=== PATIENT | female | born 1990 | race Caucasian/White ===

== ENCOUNTER 2019-03-08 16:24 | Inpatient (IN) | payer OTHER ==
[~2019-03-08] VITALS: Ht 170.2 cm; Wt 106.4 kg
--- NOTE | 2019-03-08 16:42 | NUR ---
PT IN RESTROOM
[2019-03-08] MEDS ORDERED: ONDANSETRON 2MG/ML, 2ML IVPush ONE (17:00)
[2019-03-08] MEDS ORDERED: LORazepam 2 MG/ML, 1ML IVPush ONE (17:00)
[2019-03-08] MEDS ORDERED: SODIUM CHLORIDE FLUSH 10ML SYR IVF ONE (17:00)
[2019-03-08] MEDS ORDERED: SODIUM CHLORIDE 0.9% 1,000ML IVBOLUS ONE (17:00)
[2019-03-08] MEDS ORDERED: LORazepam 2 MG/ML, 1ML ONE (17:03)
[2019-03-08] MEDS ORDERED: ONDANSETRON 2MG/ML, 2ML ONE (17:03)
--- NOTE | 2019-03-08 17:18 | NUR ---
PIV started, pt medicated per MAR. Pt's at bedside. Pt placed on monitors. VSS
[2019-03-08 17:29] LABS: ALANINE AMINOTRANSFERASE 75 U/L (12-78); ALBUMIN 4.3 g/dL (3.4-5.0); ANION GAP 16 mmol/L (5-15); CALCIUM 8.6 mg/dL (8.5-10.1); CHLORIDE 102 mmol/L (98-107); CREATININE 0.87 mg/dL (0.55-1.02)
[2019-03-08] MEDS ORDERED: LABE100T6 PO (17:30)
[2019-03-08] MEDS ORDERED: METO50TA82 PO (17:30)
[2019-03-08] MEDS ORDERED: SERT50TA PO (17:30)
[2019-03-08 17:34] LABS: ALKALINE PHOSPHATASE 111 U/L (45-117); BILIRUBIN,TOTAL 1.3 mg/dL (0.2-1.0); TOTAL PROTEIN 8.3 g/dL (6.4-8.2)
[2019-03-08 17:54] LABS: MEAN CORPUSCULAR HEMOGLOBIN 33.9 pg (27.0-34.8); MEAN CORPUSCULAR HGB CONC 33.9 g/dL (32.4-35.8); MEAN CORPUSCULAR VOLUME 100.1 fL (80-100); MEAN PLATELET VOLUME 7.8 fL (7.4-10.4); PLATELET COUNT 312 x10^3/uL (130-400); RED BLOOD COUNT 4.92 x10^6/uL (3.82-5.3)
[2019-03-08 17:57] LABS: BASOPHILS # (AUTO) 0.08 x10^3/uL (0-0.1); BASOPHILS % (AUTO) 1 % (0-1); EOSINOPHILS # (AUTO) 0.01 x10^3/uL (0-0.4); EOSINOPHILS % (AUTO) 0 % (1-7); LYMPHOCYTES # (AUTO) 2.14 x10^3/uL (1-3.4); LYMPHOCYTES % (AUTO) 28 % (22-44); MONOCYTES # (AUTO) 0.55 x10^3/uL (0.2-0.8); MONOCYTES % (AUTO) 7 % (2-9); NEUTROPHILS # (AUTO) 4.92 x10^3/uL (1.8-6.8); NEUTROPHILS % (AUTO) 64 % (42-75)
[2019-03-08 17:58] LABS: MD SCAN
[2019-03-08 18:03] LABS: RED CELL DISTRIBUTION WIDTH 16.5 % (9.6-15.2)
[2019-03-08] MEDS ORDERED: NS + 40MEQ KCL 1,000 ML IV ONE (18:11)
--- NOTE | 2019-03-08 18:26 | NUR ---
IVF with potassium started, pt remains on all monitors.
[2019-03-08] MEDS ORDERED: POTASSIUM CHLORIDE 40 MEQ in SODIUM CHLORIDE 0.9% 1,000 ML IV SCH (18:30)
[2019-03-08] MEDS ORDERED: SODIUM CHLORIDE FLUSH 10ML SYR IVF PRN (19:00)
--- NOTE | 2019-03-08 19:00 | NUR ---
Dr. Ma at bedside to evaluate pt for admission.
--- NOTE | 2019-03-08 19:18 | NUR ---
Telephone SBAR given to RNBethany. Pt made aware of new room assignment.
[2019-03-08] MEDS ORDERED: LABETALOL 5MG/ML, 20ML IVPush PRN (19:30)
[2019-03-08] MEDS ORDERED: LORazepam 1MG TABLET PO PRN ×4 (19:30)
[2019-03-08] MEDS ORDERED: hydrALAzine 20 MG/ML, 1ML IVPush PRN (19:30)
[2019-03-08] MEDS ORDERED: ONDANSETRON 2MG/ML, 2ML IVPush PRN (19:30)
[2019-03-08] MEDS ORDERED: FOLIC ACID 5 MG/ML IM ONE (19:30)
[2019-03-08] MEDS ORDERED: LORazepam 0.5MG TABLET PO PRN (19:30)
[2019-03-08] MEDS ORDERED: THIAMINE 200 MG in DEXTROSE 5% 50 ML IVPB ONE (19:30)
[2019-03-08] MEDS ORDERED: ACETAMINOPHEN 325 MG TABLET PO PRN (19:30)
[2019-03-08] MEDS ORDERED: LORazepam 2 MG/ML, 1ML IV PRN ×5 (19:30)
[2019-03-08 19:48] VITALS: BP 152/99
[2019-03-08] MEDS: ENOXAPARIN 40 MG/0.4 ML SQ SCH (20:38)
[2019-03-08] MEDS ORDERED: FOLIC ACID 1 MG TABLET PO ONE (21:00)
[2019-03-08 22:32] LABS: AMPHETAMINE SCREEN, URINE Negative (Negative); BARBITURATE SCREEN, URINE Negative (Negative); BENZODIAZEPINE SCREEN, URINE Negative (Negative); CANNABINOID SCREEN, URINE Negative (Negative); COCAINE SCREEN, URINE Negative (Negative); METHADONE SCREEN, URINE Negative (Negative); OPIATE SCREEN, URINE Negative (Negative)
[2019-03-08] MEDS: NS + 20MEQ KCL 1,000 ML IV SCH (23:55)
[2019-03-09] MEDS ORDERED: MAGNESIUM SULFATE PMX 2GM/50ML 50 ML IV ONE
[2019-03-09 01:44] LABS: OCCULT BLOOD NEGATIVE (NEGATIVE)
[2019-03-09 02:14] LABS: CLOSTRIDIUM DIFFICILE ANTIGEN NEGATIVE; CLOSTRIDIUM DIFFICILE TOXIN NEGATIVE (Negative)
[2019-03-09 02:51] VITALS: BP 164/102
[2019-03-09 03:29] VITALS: BP 146/89
[2019-03-09 05:43] LABS: ALBUMIN 3.7 g/dL (3.4-5.0); ANION GAP 9 mmol/L (5-15); CHLORIDE 106 mmol/L (98-107)
[2019-03-09 05:45] LABS: BASOPHILS # (AUTO) 0.05 x10^3/uL (0-0.1); BASOPHILS % (AUTO) 1 % (0-1); EOSINOPHILS # (AUTO) 0.02 x10^3/uL (0-0.4); EOSINOPHILS % (AUTO) 0 % (1-7); LYMPHOCYTES # (AUTO) 2.07 x10^3/uL (1-3.4); LYMPHOCYTES % (AUTO) 27 % (22-44); MD NO; MEAN CORPUSCULAR HEMOGLOBIN 33.9 pg (27.0-34.8); MEAN CORPUSCULAR HGB CONC 33.5 g/dL (32.4-35.8); MEAN CORPUSCULAR VOLUME 101.1 fL (80-100); MEAN PLATELET VOLUME 7.9 fL (7.4-10.4); MONOCYTES # (AUTO) 0.56 x10^3/uL (0.2-0.8); MONOCYTES % (AUTO) 7 % (2-9); NEUTROPHILS # (AUTO) 4.89 x10^3/uL (1.8-6.8); NEUTROPHILS % (AUTO) 65 % (42-75); PLATELET COUNT 257 x10^3/uL (130-400); RED BLOOD COUNT 4.28 x10^6/uL (3.82-5.3); RED CELL DISTRIBUTION WIDTH 17.5 % (9.6-15.2)
[2019-03-09 05:48] LABS: ALANINE AMINOTRANSFERASE 62 U/L (12-78); ALKALINE PHOSPHATASE 91 U/L (45-117); BILIRUBIN,TOTAL 1.8 mg/dL (0.2-1.0); CALCIUM 8.4 mg/dL (8.5-10.1); CREATININE 0.75 mg/dL (0.55-1.02); TOTAL PROTEIN 6.9 g/dL (6.4-8.2)
[2019-03-09] MEDS: OMEPRAZOLE 20 MG CAPSULE.DR PO SCH (06:18)
[2019-03-09 08:00] VITALS: BP 160/109
[2019-03-09] MEDS: MULTIVITAMINS/MINERALS TABLET PO SCH (09:09)
[2019-03-09] MEDS: LABETALOL 100 MG TABLET PO SCH (09:09)
[2019-03-09] MEDS: SERTRALINE 50MG TABLET PO SCH (09:10)
[2019-03-09] MEDS ORDERED: CHLORDIAZEPOXIDE 10 MG CAPSULE PO ONE (10:00)
[2019-03-09] MEDS: NS + 20MEQ KCL 1,000 ML IV SCH ×2 (10:56→16:29)
[2019-03-09] MEDS: GABAPENTIN 100 MG CAPSULE PO SCH ×3 (10:59→21:11)
[2019-03-09 13:55] VITALS: BP 112/71
[2019-03-09 21:10] VITALS: BP 150/93
[2019-03-09] MEDS: ENOXAPARIN 40 MG/0.4 ML SQ SCH (21:11)
[2019-03-10] MEDS: NS + 20MEQ KCL 1,000 ML IV SCH ×2 (00:17→08:37)
[2019-03-10 01:02] VITALS: BP 143/98
[2019-03-10] MEDS: OMEPRAZOLE 20 MG CAPSULE.DR PO SCH (05:26)
[2019-03-10 06:23] LABS: BASOPHILS # (AUTO) 0.03 x10^3/uL (0-0.1); BASOPHILS % (AUTO) 1 % (0-1); EOSINOPHILS # (AUTO) 0.09 x10^3/uL (0-0.4); EOSINOPHILS % (AUTO) 2 % (1-7); LYMPHOCYTES # (AUTO) 1.83 x10^3/uL (1-3.4); LYMPHOCYTES % (AUTO) 36 % (22-44); MD NO; MEAN CORPUSCULAR HGB CONC 33.6 g/dL (32.4-35.8); MEAN CORPUSCULAR VOLUME 101.1 fL (80-100); MONOCYTES # (AUTO) 0.32 x10^3/uL (0.2-0.8); MONOCYTES % (AUTO) 6 % (2-9); NEUTROPHILS # (AUTO) 2.79 x10^3/uL (1.8-6.8); NEUTROPHILS % (AUTO) 55 % (42-75); PLATELET COUNT 188 x10^3/uL (130-400); RED CELL DISTRIBUTION WIDTH 17.1 % (9.6-15.2)
[2019-03-10 06:31] LABS: ALANINE AMINOTRANSFERASE 49 U/L (12-78); ALBUMIN 3.1 g/dL (3.4-5.0); ANION GAP 7 mmol/L (5-15); CALCIUM 7.8 mg/dL (8.5-10.1); CHLORIDE 112 mmol/L (98-107)
[2019-03-10 06:41] LABS: ALKALINE PHOSPHATASE 79 U/L (45-117); BILIRUBIN,TOTAL 1.2 mg/dL (0.2-1.0); TOTAL PROTEIN 6.2 g/dL (6.4-8.2)
[2019-03-10 07:45] VITALS: BP 140/91
[2019-03-10] MEDS: GABAPENTIN 100 MG CAPSULE PO SCH (08:37)
[2019-03-10] MEDS: MULTIVITAMINS/MINERALS TABLET PO SCH (08:37)
[2019-03-10] MEDS: LABETALOL 100 MG TABLET PO SCH (08:38)
[2019-03-10] MEDS: SERTRALINE 50MG TABLET PO SCH (08:40)
[2019-03-10] MEDS ORDERED: THIAMINE 100 MG in DEXTROSE 5% 50 ML IVPB SCH (09:00)
[2019-03-10] MEDS ORDERED: THIAMINE 100MG TABLET PO SCH (09:00)
[2019-03-10] MEDS ORDERED: SERT50TA PO (09:33)
== END 2019-03-10 10:44 | disposition home or self-care (01) | DRG 392 ==
LOC: ED 17:20 → EDIP 18:46 → 4EST 19:38 → DCLOUNGE 03-10 10:38
PROVIDERS: ADMIT Family Medicine; ATTEND Family Medicine
DX: K52.89 Other specified noninfective gastroenteritis and colitis (principal); F10.239 Alcohol dependence with withdrawal, unspecified; D75.89 Other specified diseases of blood and blood-forming organs; E86.0 Dehydration; E87.6 Hypokalemia; I10 Essential (primary) hypertension; K29.70 Gastritis, unspecified, without bleeding; Z79.899 Other long term (current) drug therapy; Z80.7 Family history of other malignant neoplasms of lymphoid, hematopoietic and related tissues; Z81.1 Family history of alcohol abuse and dependence
CPT/HCPCS: 36415; 80053; 80307; 82272; 82607; 83735; 84100; 84443; 84703; 85025; 87324; 93005; 96374; 96375; G0378; J1650; J2405; J3411; J3480; J2060; J3475; J7030

== ENCOUNTER 2019-04-02 21:04 | Emergency (ER) | payer OTHER ==
[~2019-04-02] VITALS: Ht 170.2 cm; Wt 100.0 kg
[~2019-04-02 21:04] MED LIST: LABE100T6 PO; METO50TA82 PO; SERT50TA PO
--- NOTE | 2019-04-02 21:16 | NUR ---
PT PLACED ON BP CUFF, PULSE OX. URINE COLLECTED/SENT TO LAB. DR CHOI IN TO SEE PT.
[2019-04-02] MEDS ORDERED: ONDANSETRON 2MG/ML, 2ML ONE (21:28)
[2019-04-02] MEDS ORDERED: MAALOX/HYOSCYAMINE/LIDOCAINE 45 ML BTL ONE (21:28)
[2019-04-02] MEDS ORDERED: ONDANSETRON 2MG/ML, 2ML IVPush ONE (21:30)
[2019-04-02] MEDS ORDERED: MAALOX/HYOSCYAMINE/LIDOCAINE 45 ML BTL PO ONE (21:30)
--- NOTE | 2019-04-02 21:33 | NUR ---
PT MEDICATED PER ERP ORDER FOR ABD PAIN RATED 3/10 AND NAUSEA. LAB IN TO DRAW. PT UPDATED ON POC, CALL LIGHT WITHIN REACH.
[2019-04-02 21:55] LABS: INTERNATIONAL NORMALIZED RATIO 1.04 (0.93-1.1); PROTHROMBIN TIME 10.9 Seconds (9.6-11.5)
[2019-04-02 21:57] LABS: BASOPHILS # (AUTO) 0.08 x10^3/uL (0-0.1); BASOPHILS % (AUTO) 1 % (0-1); EOSINOPHILS # (AUTO) 0.01 x10^3/uL (0-0.4); EOSINOPHILS % (AUTO) 0 % (1-7); LYMPHOCYTES # (AUTO) 1.85 x10^3/uL (1-3.4); LYMPHOCYTES % (AUTO) 12 % (22-44); MD NO; MEAN CORPUSCULAR HEMOGLOBIN 34.1 pg (27.0-34.8); MEAN CORPUSCULAR HGB CONC 33.4 g/dL (32.4-35.8); MEAN CORPUSCULAR VOLUME 102.1 fL (80-100); MEAN PLATELET VOLUME 8.8 fL (7.4-10.4); MONOCYTES # (AUTO) 0.93 x10^3/uL (0.2-0.8); MONOCYTES % (AUTO) 6 % (2-9); NEUTROPHILS # (AUTO) 12.52 x10^3/uL (1.8-6.8); NEUTROPHILS % (AUTO) 81 % (42-75); PLATELET COUNT 344 x10^3/uL (130-400); RED BLOOD COUNT 4.89 x10^6/uL (3.82-5.3); RED CELL DISTRIBUTION WIDTH 16.9 % (9.6-15.2)
[2019-04-02 21:58] LABS: ALBUMIN 4.1 g/dL (3.4-5.0); ANION GAP 10 mmol/L (5-15); CALCIUM 8.8 mg/dL (8.5-10.1); CHLORIDE 100 mmol/L (98-107)
[2019-04-02 22:04] LABS: ALANINE AMINOTRANSFERASE 78 U/L (12-78); ALKALINE PHOSPHATASE 106 U/L (45-117); BILIRUBIN,TOTAL 1.8 mg/dL (0.2-1.0); CREATININE 0.82 mg/dL (0.55-1.02); TOTAL PROTEIN 7.9 g/dL (6.4-8.2)
[2019-04-02 22:28] LABS: CULTURE INDICATED? YES; MICROSCOPIC INDICATED
[2019-04-02] MEDS ORDERED: LORazepam 2 MG/ML, 1ML IVPush ONE (22:30)
--- NOTE | 2019-04-02 22:45 | NUR ---
ALL RESULTS BACK, PT FOR RECHECK.
[2019-04-02] MEDS ORDERED: LORazepam 2 MG/ML, 1ML ONE (22:46)
[2019-04-02 22:51] VITALS: BP 130/87
[2019-04-02] MEDS ORDERED: POTASSIUM CHLORIDE 20 MEQ TAB.ER.PRT ONE (22:55)
--- NOTE | 2019-04-02 22:58 | NUR ---
ATIVAN AND POTASSIUM GIVEN PER ERP ORDER. VSS/UPDATED IN COMPUTER. AWAITING DISCHARGE PAPERWORK.
[2019-04-02] MEDS ORDERED: POTASSIUM CHLORIDE 20 MEQ TAB.ER.PRT PO ONE (23:00)
== END 2019-04-02 23:20 | disposition home or self-care (01) ==
LOC: ED 21:14
DX: K29.21 Alcoholic gastritis with bleeding (principal); F10.239 Alcohol dependence with withdrawal, unspecified; F10.229 Alcohol dependence with intoxication, unspecified; N30.01 Acute cystitis with hematuria; E87.6 Hypokalemia; I10 Essential (primary) hypertension; Z72.9 Problem related to lifestyle, unspecified
CPT/HCPCS: 36415; 80053; 80307; 81001; 83690; 84703; 85025; 85610; 87086; 96374; 96375; 99283; J2060; J2405

== ENCOUNTER 2019-04-24 07:23 | Emergency (ER) | payer MEDICAID ==
[~2019-04-24] VITALS: Ht 170.2 cm; Wt 102.0 kg
[2019-04-24] MEDS ORDERED: ONDANSETRON ODT 4 MG ONE (07:44)
[2019-04-24] MEDS ORDERED: KETOROLAC 30 MG/1 ML ONE (07:53)
[2019-04-24] MEDS ORDERED: SODIUM CHLORIDE 0.9% 1,000ML IVBOLUS ONE (08:00)
[2019-04-24] MEDS ORDERED: KETOROLAC 30 MG/1 ML IVPush ONE (08:00)
[2019-04-24] MEDS ORDERED: ONDANSETRON ODT 4 MG PO ONE (08:00)
[2019-04-24] MEDS ORDERED: SODIUM CHLORIDE FLUSH 10ML SYR IVF ONE (08:00)
--- NOTE | 2019-04-24 08:00 | NUR ---
pt upright on gurney awake & more comfortable, responds approp to staff, NAD, comfort measures provided, call light within reach.
[2019-04-24 08:09] LABS: BASOPHILS # (AUTO) 0.03 x10^3/uL (0-0.1); BASOPHILS % (AUTO) 1 % (0-1); EOSINOPHILS # (AUTO) 0.05 x10^3/uL (0-0.4); EOSINOPHILS % (AUTO) 1 % (1-7); LYMPHOCYTES # (AUTO) 0.99 x10^3/uL (1-3.4); LYMPHOCYTES % (AUTO) 22 % (22-44); MD NO; MEAN CORPUSCULAR HEMOGLOBIN 34.1 pg (27.0-34.8); MEAN CORPUSCULAR HGB CONC 33.3 g/dL (32.4-35.8); MEAN CORPUSCULAR VOLUME 102.4 fL (80-100); MEAN PLATELET VOLUME 8.2 fL (7.4-10.4); MONOCYTES # (AUTO) 0.35 x10^3/uL (0.2-0.8); MONOCYTES % (AUTO) 8 % (2-9); NEUTROPHILS # (AUTO) 3.07 x10^3/uL (1.8-6.8); NEUTROPHILS % (AUTO) 68 % (42-75); PLATELET COUNT 233 x10^3/uL (130-400); RED BLOOD COUNT 4.86 x10^6/uL (3.82-5.3); RED CELL DISTRIBUTION WIDTH 15.9 % (9.6-15.2)
[2019-04-24 08:13] LABS: HCG UR SG 1.029 (1.003-1.030)
[2019-04-24 08:14] LABS: CULTURE INDICATED? YES; MICROSCOPIC INDICATED
[2019-04-24 08:22] LABS: ALBUMIN 4.5 g/dL (3.4-5.0); ANION GAP 16 mmol/L (5-15); CALCIUM 8.9 mg/dL (8.5-10.1); CHLORIDE 104 mmol/L (98-107)
[2019-04-24 08:24] LABS: ALANINE AMINOTRANSFERASE 139 U/L (12-78); ALKALINE PHOSPHATASE 106 U/L (45-117); BILIRUBIN,TOTAL 1.3 mg/dL (0.2-1.0); CREATININE 0.82 mg/dL (0.55-1.02); TOTAL PROTEIN 8.3 g/dL (6.4-8.2)
[2019-04-24 08:55] VITALS: BP 132/89
--- NOTE | 2019-04-24 08:55 | NUR ---
pt remains upright on gurney awake & comfortable, responds approp to staff, NAD, comfort measures provided, call light within reach.
[2019-04-24] MEDS ORDERED: POTASSIUM CHLORIDE 20 MEQ TAB.ER.PRT PO ONE (09:00)
[2019-04-24] MEDS ORDERED: POTASSIUM CHLORIDE 20 MEQ TAB.ER.PRT ONE (09:13)
--- NOTE | 2019-04-24 09:18 | NUR ---
Patient given discharge instructions and Rx, they have confirmed that they understand the instructions. Patient ambulatory with steady gait.
== END 2019-04-24 09:25 | disposition home or self-care (01) ==
LOC: ED 08:50
DX: N30.00 Acute cystitis without hematuria (principal); R74.8 Abnormal levels of other serum enzymes; I10 Essential (primary) hypertension; Z72.9 Problem related to lifestyle, unspecified; R11.10 Vomiting, unspecified
CPT/HCPCS: 36415; 80053; 81001; 81025; 85025; 87086; 93005; 96361; 96374; 99284; J1885; J7030; Q0162

== ENCOUNTER 2019-08-11 23:41 | Emergency (ER) | payer MEDICAID ==
[~2019-08-11] VITALS: Ht 170.2 cm; Wt 122.0 kg
[2019-08-12] MEDS ORDERED: ONDANSETRON 2MG/ML, 2ML IVPush ONE
[2019-08-12] MEDS ORDERED: SODIUM CHLORIDE 0.9% 1,000ML IVBOLUS ONE
[2019-08-12 00:15] LABS: BASOPHILS # (AUTO) 0.05 x10^3/uL (0-0.1); BASOPHILS % (AUTO) 0 % (0-1); EOSINOPHILS # (AUTO) 0.01 x10^3/uL (0-0.4); EOSINOPHILS % (AUTO) 0 % (1-7); LYMPHOCYTES # (AUTO) 1.37 x10^3/uL (1-3.4); LYMPHOCYTES % (AUTO) 10 % (22-44); MD NO; MEAN CORPUSCULAR HEMOGLOBIN 36.2 pg (27.0-34.8); MEAN CORPUSCULAR HGB CONC 34.1 g/dL (32.4-35.8); MEAN CORPUSCULAR VOLUME 106.1 fL (80-100); MEAN PLATELET VOLUME 8.2 fL (7.4-10.4); MONOCYTES # (AUTO) 0.66 x10^3/uL (0.2-0.8); MONOCYTES % (AUTO) 5 % (2-9); NEUTROPHILS # (AUTO) 11.36 x10^3/uL (1.8-6.8); NEUTROPHILS % (AUTO) 84 % (42-75); PLATELET COUNT 311 x10^3/uL (130-400); RED BLOOD COUNT 4.68 x10^6/uL (3.82-5.3); RED CELL DISTRIBUTION WIDTH 13.6 % (9.6-15.2)
[2019-08-12] MEDS ORDERED: LORazepam 2 MG/ML, 1ML ONE ×3 (00:24→02:28)
[2019-08-12] MEDS ORDERED: ONDANSETRON 2MG/ML, 2ML ONE (00:24)
[2019-08-12 00:26] LABS: CALCIUM 8.7 mg/dL (8.5-10.1)
[2019-08-12 00:31] LABS: ALANINE AMINOTRANSFERASE 108 U/L (12-78); ALKALINE PHOSPHATASE 113 U/L (45-117); CREATININE 0.95 mg/dL (0.55-1.02); TOTAL PROTEIN 7.8 g/dL (6.4-8.2)
--- NOTE | 2019-08-12 00:39 | NUR ---
PT PROVIDED URINE SAMPLE AT THIS TIME, AMBULATED WITH STEADY GAIT TO BR. IVF INITIATED. PT RESTING IN BED, ALL MONITORS IN PLACED. MEDICATED PER DEC.
[2019-08-12 01:06] LABS: ANION GAP 8 mmol/L (5-15); CHLORIDE 105 mmol/L (98-107)
[2019-08-12] MEDS ORDERED: LORazepam 2 MG/ML, 1ML IVPush ONE ×2 (02:00)
--- NOTE | 2019-08-12 02:30 | NUR ---
DR. KURTZ HAD PROVIDED PT. WITH PO FLUIDS A BIT AGO. PT. IS TOLERATING PO FLUIDS WELL. PT. MEDICATED PER DEC. PT. DENIES ANY PAIN OR DISCOMFORT AT THIS TIME. DENIES NEEDS. ALL MONITORS REMAIN IN PLACE. ALL SAFETY MEASURES OBSERVED.
[2019-08-12 03:26] VITALS: BP 129/78
--- NOTE | 2019-08-12 03:27 | NUR ---
PT. CONTINUES TO TOLERATE PO INTAKE. PT. REPORTS FEELING MUCH BETTER AT THIS TIME. VS UPDATED. DR. KURTZ NOTIFIED. PT. TO BE D/C.
== END 2019-08-12 03:53 | disposition home or self-care (01) ==
LOC: ED 08-12 01:01
DX: F41.1 Generalized anxiety disorder (principal); R11.2 Nausea with vomiting, unspecified; R42 Dizziness and giddiness; I10 Essential (primary) hypertension; Z87.891 Personal history of nicotine dependence
CPT/HCPCS: 36415; 71045; 80053; 83690; 84703; 85025; 93005; 96374; 96375; 96376; 99284; J2060; J2405; J7030

== ENCOUNTER 2020-01-07 23:25 | Emergency (ER) | payer MEDICAID ==
[~2020-01-07] VITALS: Ht 170.2 cm; Wt 100.0 kg
[2020-01-08] MEDS ORDERED: THIAMINE 100 MG/ML, 2ML IM ONE
[2020-01-08] MEDS ORDERED: LORazepam 2 MG/ML, 1ML IVPush ONE
[2020-01-08 00:02] LABS: BASOPHILS # (AUTO) 0.03 x10^3/uL (0-0.1); BASOPHILS % (AUTO) 0 % (0-1); EOSINOPHILS % (AUTO) 1 % (1-7); LYMPHOCYTES # (AUTO) 2.05 x10^3/uL (1-3.4); LYMPHOCYTES % (AUTO) 21 % (22-44); MD NO; MEAN CORPUSCULAR HGB CONC 33.8 g/dL (32.4-35.8); MEAN CORPUSCULAR VOLUME 109.4 fL (80-100); MEAN PLATELET VOLUME 8.4 fL (7.4-10.4); MONOCYTES # (AUTO) 0.59 x10^3/uL (0.2-0.8); MONOCYTES % (AUTO) 6 % (2-9); NEUTROPHILS # (AUTO) 7.16 x10^3/uL (1.8-6.8); NEUTROPHILS % (AUTO) 72 % (42-75); PLATELET COUNT 261 x10^3/uL (130-400); RED CELL DISTRIBUTION WIDTH 13.6 % (9.6-15.2)
[2020-01-08 00:06] LABS: ALANINE AMINOTRANSFERASE 152 U/L (12-78); ALBUMIN 3.7 g/dL (3.4-5.0); ANION GAP 8 mmol/L (5-15); CALCIUM 8.8 mg/dL (8.5-10.1); CHLORIDE 105 mmol/L (98-107); CREATININE 0.68 mg/dL (0.55-1.02)
[2020-01-08 00:11] LABS: ALKALINE PHOSPHATASE 106 U/L (45-117); BILIRUBIN,TOTAL 2.6 mg/dL (0.2-1.0); TOTAL PROTEIN 7.3 g/dL (6.4-8.2); TROPONIN I < 0.015 ng/mL (0.000-0.045)
[2020-01-08] MEDS ORDERED: LORazepam 2 MG/ML, 1ML ONE (00:11)
[2020-01-08] MEDS ORDERED: THIAMINE 100 MG/ML, 2ML ONE (00:12)
[2020-01-08 00:20] VITALS: BP 149/68
--- NOTE | 2020-01-08 00:22 | NUR ---
Patient BIB [facility] c/o N/V and anxiety since last night in the middle of the night; woke her from sleep. Per EMS, patient was having a lot of anxiety and they were able to track coach her. IV established by EMS. 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 Patient states she has a hx of anxiety but does not take meds for it.
--- NOTE | 2020-01-08 01:04 | NUR ---
Report given to BART Gregorio.
--- NOTE | 2020-01-08 01:07 | NUR ---
REPORT RECEIVED FROM BART GASCA. PLAN OF CARE DISCUSSED
--- NOTE | 2020-01-08 01:17 | NUR ---
Patient/Caregiver given discharge instructions and they have confirmed that they understand the instructions. Patient ambulatory with steady gait.
== END 2020-01-08 01:20 ==
LOC: ED 01-08 00:41
DX: F41.1 Generalized anxiety disorder (principal); F10.10 Alcohol abuse, uncomplicated; Y90.0 Blood alcohol level of less than 20 mg/100 ml
CPT/HCPCS: 36415; 71045; 80053; 80307; 84443; 84484; 84703; 85025; 93005; 96372; 96374; 99285; J2060; J3411

== ENCOUNTER 2020-05-23 23:30 | Emergency (ER) | payer MEDICAID ==
[~2020-05-23] VITALS: Ht 170.2 cm; Wt 105.9 kg
[2020-05-24 00:19] LABS: MEAN CORPUSCULAR HEMOGLOBIN 38.2 pg (27.0-34.8); MEAN CORPUSCULAR VOLUME 112.5 fL (80-100); MEAN PLATELET VOLUME 7.7 fL (7.4-10.4); PLATELET COUNT 330 x10^3/uL (130-400); RED BLOOD COUNT 4.13 x10^6/uL (3.82-5.3); RED CELL DISTRIBUTION WIDTH 15.9 % (9.6-15.2)
[2020-05-24 00:29] LABS: ALANINE AMINOTRANSFERASE 141 U/L (12-78); ALBUMIN 3.5 g/dL (3.4-5.0); ANION GAP 11 mmol/L (5-15); CALCIUM 8.7 mg/dL (8.5-10.1); CHLORIDE 106 mmol/L (98-107); CREATININE 0.62 mg/dL (0.55-1.02)
[2020-05-24 00:33] LABS: ALKALINE PHOSPHATASE 121 U/L (45-117); BILIRUBIN,TOTAL 1.5 mg/dL (0.2-1.0); TOTAL PROTEIN 7.2 g/dL (6.4-8.2)
[2020-05-24 00:55] LABS: MICROSCOPIC AUTO
[2020-05-24 00:56] LABS: BASOPHILS # (AUTO) 0.04 x10^3/uL (0-0.1); BASOPHILS % (AUTO) 1 % (0-1); EOSINOPHILS % (AUTO) 1 % (1-7); LYMPHOCYTES # (AUTO) 2.49 x10^3/uL (1-3.4); LYMPHOCYTES % (AUTO) 26 % (22-44); MD SCAN; MONOCYTES # (AUTO) 0.52 x10^3/uL (0.2-0.8); MONOCYTES % (AUTO) 6 % (2-9); NEUTROPHILS % (AUTO) 67 % (42-75)
[2020-05-24 01:48] VITALS: BP 144/108
--- NOTE | 2020-05-24 01:48 | NUR ---
PT RESTING IN BED, PT REQUESTED NAUSEA MEDICATION. PT PROVIDER NOTIFIED. 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
[2020-05-24] MEDS ORDERED: ONDANSETRON ODT 4 MG ONE (01:56)
[2020-05-24] MEDS ORDERED: ONDANSETRON ODT 4 MG PO ONE (02:00)
== END 2020-05-24 03:00 | disposition home or self-care (01) ==
LOC: ED 05-24 00:53
DX: K29.20 Alcoholic gastritis without bleeding (principal); F10.10 Alcohol abuse, uncomplicated; R10.13 Epigastric pain; R94.5 Abnormal results of liver function studies; I11.9 Hypertensive heart disease without heart failure; R00.0 Tachycardia, unspecified; Z87.891 Personal history of nicotine dependence; Y90.9 Presence of alcohol in blood, level not specified; K76.0 Fatty (change of) liver, not elsewhere classified
CPT/HCPCS: 36415; 76700; 80053; 81001; 83690; 84703; 85025; 87086; 93005; 99285; Q0162

== ENCOUNTER 2020-06-18 22:44 | Emergency (ER) | payer MEDICAID ==
[~2020-06-18] VITALS: Ht 170.2 cm; Wt 101.5 kg
[2020-06-18 22:48] VITALS: BP 147/106
--- NOTE | 2020-06-18 23:25 | NUR ---
Patient presents to ER c/o N/V and abd pain x1 week. Patient states she has a hx of the same and states it was from drinking too much alcohol. Patient states she has not stopped drinking while these symptoms. Patient is in NAD. Respirations even and unlabored.
[2020-06-18] MEDS ORDERED: ONDANSETRON 2MG/ML, 2ML ONE (23:53)
[2020-06-18] MEDS ORDERED: LORazepam 2 MG/ML, 1ML ONE (23:54)
[2020-06-19] MEDS ORDERED: LORazepam 2 MG/ML, 1ML IVPush ONE
[2020-06-19] MEDS ORDERED: ONDANSETRON 2MG/ML, 2ML IVPush ONE
[2020-06-19] MEDS ORDERED: SODIUM CHLORIDE 0.9% 1,000ML IVBOLUS ONE
[2020-06-19 00:25] LABS: MEAN CORPUSCULAR HEMOGLOBIN 38.5 pg (27.0-34.8); MEAN CORPUSCULAR HGB CONC 33.8 g/dL (32.4-35.8); MEAN CORPUSCULAR VOLUME 114.1 fL (80-100); MEAN PLATELET VOLUME 8.1 fL (7.4-10.4); PLATELET COUNT 427 x10^3/uL (130-400); RED BLOOD COUNT 4.23 x10^6/uL (3.82-5.3); RED CELL DISTRIBUTION WIDTH 15.5 % (9.6-15.2)
[2020-06-19 00:49] LABS: ALANINE AMINOTRANSFERASE 103 U/L (12-78); ALBUMIN 3.7 g/dL (3.4-5.0); ANION GAP 10 mmol/L (5-15); CALCIUM 9.2 mg/dL (8.5-10.1); CHLORIDE 100 mmol/L (98-107); CREATININE 0.73 mg/dL (0.55-1.02)
[2020-06-19 00:54] LABS: ALKALINE PHOSPHATASE 110 U/L (45-117); BILIRUBIN,TOTAL 1.6 mg/dL (0.2-1.0); TOTAL PROTEIN 7.9 g/dL (6.4-8.2)
[2020-06-19] MEDS ORDERED: POTASSIUM CHLORIDE 20 MEQ TAB.ER.PRT PO ONE (01:00)
[2020-06-19 01:12] LABS: BASOPHILS # (AUTO) 0.08 x10^3/uL (0-0.1); BASOPHILS % (AUTO) 1 % (0-1); EOSINOPHILS # (AUTO) 0.02 x10^3/uL (0-0.4); EOSINOPHILS % (AUTO) 0 % (1-7); LYMPHOCYTES % (AUTO) 21 % (22-44); MD SCAN; MONOCYTES # (AUTO) 0.61 x10^3/uL (0.2-0.8); MONOCYTES % (AUTO) 6 % (2-9); NEUTROPHILS # (AUTO) 7.98 x10^3/uL (1.8-6.8); NEUTROPHILS % (AUTO) 73 % (42-75)
[2020-06-19] MEDS ORDERED: POTASSIUM CHLORIDE 20 MEQ TAB.ER.PRT ONE (01:18)
--- NOTE | 2020-06-19 01:27 | NUR ---
BREAK RN: PATIENT MEDICATED, AND UPDATED ON PLAN OF CARE. NO FURTHER NOTED NEEDS AT THIS TIME.
== END 2020-06-19 02:51 | disposition home or self-care (01) ==
LOC: ED 23:46
DX: F10.239 Alcohol dependence with withdrawal, unspecified (principal); F41.9 Anxiety disorder, unspecified; R11.2 Nausea with vomiting, unspecified; M79.10 Myalgia, unspecified site; I10 Essential (primary) hypertension; R00.0 Tachycardia, unspecified; E87.6 Hypokalemia; Z87.891 Personal history of nicotine dependence; Y90.0 Blood alcohol level of less than 20 mg/100 ml
CPT/HCPCS: 36415; 80053; 83690; 84703; 85025; 93005; 96361; 96374; 96375; 99284; J2060; J2405; J7030

== ENCOUNTER 2020-12-20 21:07 | Emergency (ER) | payer MEDICAID ==
[~2020-12-20] VITALS: Ht 170.2 cm; Wt 91.0 kg
--- NOTE | 2020-12-20 21:30 | NUR ---
PATIENT ARRIVING VIA [facility] WITH ANXIETY ATTACK LIKE SYMPTOMS. PATIENT STATES THIS HAS HAPPENED BEFORE WHEN SHE STARTED TO BINGE DRINK ALCOHOL. SHE JUST STARTED DRINKING AGAIN ~ 2 DAYS AGO. HAS BEEN SOBER FOR SOME TIME NOW. PATIENT RESTLESS IN BED. WILL CONTINUE TO MONITOR. BED RAILS UP FOR SAFETY. C/O CHEST PRESSURE RADIATING TO LEFT JAW AND HEAD PRESSURE
[2020-12-20] MEDS ORDERED: LORazepam 1MG TABLET ONE (21:45)
[2020-12-20 21:54] LABS: BASOPHILS % (AUTO) 1 % (0-1); EOSINOPHILS % (AUTO) 1 % (1-7); LYMPHOCYTES % (AUTO) 33 % (22-44); MEAN CORPUSCULAR HGB CONC 34.7 g/dL (32.4-35.8); MEAN PLATELET VOLUME 7.9 fL (7.4-10.4); MONOCYTES % (AUTO) 8 % (2-9); NEUTROPHILS % (AUTO) 58 % (42-75); PLATELET COUNT 336 x10^3/uL (130-400); RED BLOOD COUNT 4.61 x10^6/uL (3.82-5.3); RED CELL DISTRIBUTION WIDTH 13.7 % (9.6-15.2)
[2020-12-20 21:56] LABS: MD NO
[2020-12-20] MEDS ORDERED: LORazepam 1MG TABLET PO ONE (22:00)
[2020-12-20 22:05] LABS: ALANINE AMINOTRANSFERASE 68 U/L (12-78); ANION GAP 12 mmol/L (5-15); CALCIUM 8.7 mg/dL (8.5-10.1); CHLORIDE 107 mmol/L (98-107); CREATININE 0.71 mg/dL (0.55-1.02)
[2020-12-20 22:09] LABS: ALKALINE PHOSPHATASE 121 U/L (45-117); BILIRUBIN,TOTAL 1.4 mg/dL (0.2-1.0); TOTAL PROTEIN 7.9 g/dL (6.4-8.2)
--- NOTE | 2020-12-20 22:39 | NUR ---
PATIENT REPORTS FEELING BETTER AND MOST SYMPTOMS HAVE RESOLVED POST ATIVAN PO ADMINISTRATION AND I HAD DIMMED LIGHTS TO DECREASE ANXIETY. REQUESTING MORE WATER. SAFETY MAINTAINED
--- NOTE | 2020-12-20 22:53 | NUR ---
PTIENT AMBULATED TO BATHROOM WITH STEADY GAIT. NO SIGNS OF SOB. CALL LEE IN REACH. WARM BLANKET PROVIDED
[2020-12-20 23:06] LABS: MICROSCOPIC AUTO
--- NOTE | 2020-12-20 23:53 | NUR ---
PATIENT COMPLAINING OF "CHEST FLUTTERING/NUMBNESS/TINGLING". DR. MEZA MADE AWARE OF THIS WELL DDIMER I WAS UNABLE TO FIND PRIMARY PA, SHALA AT THIS TIME.
--- NOTE | 2020-12-21 00:07 | NUR ---
REPORT GIVEN TO KAYLEY FOR LUNCH RELIEF
[2020-12-21] MEDS ORDERED: OMNIPAQUE 350 MG/ML, 75ML BOTTLE ONE (00:45)
--- NOTE | 2020-12-21 01:10 | NUR ---
PATIENT RESTING IN BED IN NAD. BACK FROM CT. CALL LEE IN REACH. VS REMAIN STABLE.
[2020-12-21] MEDS ORDERED: ONDANSETRON 2MG/ML, 2ML IVPush ONE (02:00)
[2020-12-21] MEDS ORDERED: LORazepam 2 MG/ML, 1ML IVPush ONE (02:00)
[2020-12-21] MEDS ORDERED: ONDANSETRON 2MG/ML, 2ML ONE (02:02)
[2020-12-21] MEDS ORDERED: LORazepam 2 MG/ML, 1ML ONE (02:02)
--- NOTE | 2020-12-21 02:20 | NUR ---
patient resting in bed. ativan and zofran administered. patient denies CP/SOB/KNIGHT. safety maintained. call jose in reach
--- NOTE | 2020-12-21 02:43 | NUR ---
discharge instructions reviewed with patient. prescriptions handed directly to patient. IV removed per dc protocol. all personal belongings with patient on dc. steady gait. patient acknowledged teaching on not driving tonight due to ativan and states she is getting an uber home. A&Ox4 on departure. continues to deny KNIGHT/SOB/CP Addendum: 12/21/20 at 0246 by ANKITA resource handouts provided for psych/therapy resources and addiction treatment
[2020-12-21 02:45] VITALS: BP 158/86
== END 2020-12-21 02:48 | disposition home or self-care (01) ==
LOC: ED 21:30
DX: N39.0 Urinary tract infection, site not specified (principal); F41.1 Generalized anxiety disorder; F10.129 Alcohol abuse with intoxication, unspecified; Y90.0 Blood alcohol level of less than 20 mg/100 ml; R00.0 Tachycardia, unspecified; I10 Essential (primary) hypertension; Z72.9 Problem related to lifestyle, unspecified
CPT/HCPCS: 36415; 71045; 71275; 80053; 81001; 84703; 85025; 85379; 87086; 96374; 96375; 99285; J2060; J2405; Q9967; 87077

== ENCOUNTER 2020-12-22 11:39 | Emergency (ER) | payer MEDICAID ==
[~2020-12-22] VITALS: Ht 170.2 cm; Wt 106.7 kg
[2020-12-22] MEDS ORDERED: ONDANSETRON 2MG/ML, 2ML ONE (12:05)
[2020-12-22 12:22] LABS: BASOPHILS % (AUTO) 1 % (0-1); EOSINOPHILS % (AUTO) 1 % (1-7); LYMPHOCYTES % (AUTO) 21 % (22-44); MEAN CORPUSCULAR HEMOGLOBIN 33.8 pg (27.0-34.8); MEAN PLATELET VOLUME 8.4 fL (7.4-10.4); MONOCYTES % (AUTO) 5 % (2-9); NEUTROPHILS % (AUTO) 72 % (42-75); PLATELET COUNT 263 x10^3/uL (130-400); RED BLOOD COUNT 4.59 x10^6/uL (3.82-5.3); RED CELL DISTRIBUTION WIDTH 14.1 % (9.6-15.2)
[2020-12-22 12:27] LABS: MD NO
[2020-12-22 12:30] LABS: ALBUMIN 4.1 g/dL (3.4-5.0); ANION GAP 10 mmol/L (5-15); CALCIUM 8.8 mg/dL (8.5-10.1); CHLORIDE 102 mmol/L (98-107)
[2020-12-22] MEDS ORDERED: SODIUM CHLORIDE 0.9% 1,000ML IVBOLUS ONE (12:30)
[2020-12-22] MEDS ORDERED: ONDANSETRON 2MG/ML, 2ML IVPush ONE (12:30)
[2020-12-22] MEDS ORDERED: SODIUM CHLORIDE FLUSH 10ML SYR IVF ONE (12:30)
[2020-12-22 12:33] LABS: ALANINE AMINOTRANSFERASE 112 U/L (12-78); ALKALINE PHOSPHATASE 122 U/L (45-117); BILIRUBIN,TOTAL 1.7 mg/dL (0.2-1.0); CREATININE 0.84 mg/dL (0.55-1.02); TOTAL PROTEIN 7.9 g/dL (6.4-8.2)
--- NOTE | 2020-12-22 12:43 | NUR ---
PSYCH AT BS
[2020-12-22 12:52] VITALS: BP 126/85
--- NOTE | 2020-12-22 12:53 | NUR ---
PT SITTING ON GURNEY, CALM AND COMFORTABLE WHILE TALKING TO STAFF AIR DEFENSE OFFICER. JAVIER/VSS. CALL LIGHT WITHIN REACH.
[2020-12-22] MEDS ORDERED: DIVALPROEX 500 MG TAB.ER.24H ONE (13:12)
[2020-12-22] MEDS ORDERED: SERTRALINE 50MG TABLET ONE (13:13)
--- NOTE | 2020-12-22 13:26 | NUR ---
Patient given discharge instructions and they have confirmed that they understand the instructions. Patient ambulatory with steady gait.
[2020-12-22] MEDS ORDERED: SERTRALINE 50MG TABLET PO ONE (13:30)
[2020-12-22] MEDS ORDERED: DIVALPROEX 500 MG TAB.ER.24H PO ONE (13:30)
== END 2020-12-22 13:28 | disposition home or self-care (01) ==
LOC: ED 13:20
DX: F32.1 Major depressive disorder, single episode, moderate (principal); F10.10 Alcohol abuse, uncomplicated; F41.1 Generalized anxiety disorder; R00.0 Tachycardia, unspecified; R11.2 Nausea with vomiting, unspecified; R10.9 Unspecified abdominal pain; I10 Essential (primary) hypertension; Y90.0 Blood alcohol level of less than 20 mg/100 ml
CPT/HCPCS: 36415; 80053; 80320; 83690; 85025; 93005; 96361; 96374; 99284; J2405; J7030; G0480

== ENCOUNTER 2021-05-30 09:55 | Emergency (ER) | payer MEDICAID ==
[~2021-05-30] VITALS: Ht 170.2 cm; Wt 108.6 kg
[2021-05-30 11:22] LABS: BASOPHILS % (AUTO) 1 % (0-1); EOSINOPHILS % (AUTO) 1 % (1-7); LYMPHOCYTES % (AUTO) 23 % (22-44); MEAN CORPUSCULAR HEMOGLOBIN 37.5 pg (27.0-34.8); MEAN CORPUSCULAR HGB CONC 34.6 g/dL (32.4-35.8); MONOCYTES % (AUTO) 5 % (2-9); NEUTROPHILS % (AUTO) 70 % (42-75); PLATELET COUNT 409 x10^3/uL (130-400); RED BLOOD COUNT 4.33 x10^6/uL (3.82-5.3); RED CELL DISTRIBUTION WIDTH 14.9 % (9.6-15.2)
[2021-05-30 11:34] LABS: ALBUMIN 3.8 g/dL (3.4-5.0); ANION GAP 7 mmol/L (5-15); CHLORIDE 106 mmol/L (98-107)
[2021-05-30 11:39] LABS: ALANINE AMINOTRANSFERASE 66 U/L (12-78); ALKALINE PHOSPHATASE 116 U/L (45-117); BILIRUBIN,TOTAL 0.8 mg/dL (0.2-1.0); CREATININE 0.87 mg/dL (0.55-1.02); TOTAL PROTEIN 7.8 g/dL (6.4-8.2); TROPONIN I < 0.015 ng/mL (0.000-0.045)
--- NOTE | 2021-05-30 12:04 | NUR ---
TRIAGE TECH: NALX1 FOR SECOND SET OF VITALS.
--- NOTE | 2021-05-30 15:06 | NUR ---
TRAIGE TECH: NIL X 2 FOR SECOND SET OF VITALS
--- NOTE | 2021-05-30 16:41 | NUR ---
PT RESTING IN ROOM. VS STABLE. 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 NSR NOTED. CALL LIGHT IN PLACE. WILL CONTINUE TO MONITOR.
[2021-05-30] MEDS ORDERED: MAALOX/HYOSCYAMINE/LIDOCAINE 45 ML BTL PO ONE (17:00)
--- NOTE | 2021-05-30 17:03 | NUR ---
PT SEEN BY DR MC.
[2021-05-30] MEDS ORDERED: MAALOX/HYOSCYAMINE/LIDOCAINE 45 ML BTL ONE (17:05)
--- NOTE | 2021-05-30 17:16 | NUR ---
PT REPORTS SHE IS FEELING BETTER AT THE GI COCKTAIL.
[2021-05-30 17:41] VITALS: BP 125/75
== END 2021-05-30 17:45 | disposition home or self-care (01) ==
LOC: ED 10:25
DX: K29.20 Alcoholic gastritis without bleeding (principal); F10.10 Alcohol abuse, uncomplicated; R07.89 Other chest pain; I10 Essential (primary) hypertension; Z87.891 Personal history of nicotine dependence; Y90.0 Blood alcohol level of less than 20 mg/100 ml
CPT/HCPCS: 36415; 71045; 80053; 84484; 85025; 93005; 99285